=== PATIENT | male | born 1985 | race Caucasian/White ===

== ENCOUNTER 2018-11-16 23:20 | Emergency (ER) | payer SELFPAY ==
[2018-11-16] MEDS ORDERED: Ketorolac Tromethamine 60 MG/2 ML VIAL ONE (23:49)
[2018-11-16] MEDS ORDERED: Cephalexin 500 MG CAP ONE (23:49)
== END 2018-11-17 00:09 | disposition home or self-care (01) ==
LOC: MADERS 23:20
DX: L03.115 Cellulitis of right lower limb (principal); F17.210 Nicotine dependence, cigarettes, uncomplicated
CPT/HCPCS: 96372; J1885